=== PATIENT | female | born 1960 | race Caucasian/White ===

== ENCOUNTER 2018-02-12 21:41 | Emergency (ER) | payer MEDICAID ==
[~2018-02-12] VITALS: Ht 154.9 cm; Wt 103.8 kg
[2018-02-12 22:26] VITALS: BP 160/87
[2018-02-12] MEDS ORDERED: BODY (22:26)
[2018-02-12] MEDS ORDERED: [UNRECOGNIZED DRUG - OTHER] (22:26)
[2018-02-12] MEDS ORDERED: OXYcodone/APAP 5/325MG TABLET PO ONE (22:30)
[2018-02-12] MEDS ORDERED: KETOROLAC 60 MG/2 ML IM ONE (22:30)
[2018-02-12] MEDS ORDERED: OXYcodone/APAP 5/325MG TABLET ONE ×2 (22:34→22:45)
[2018-02-12] MEDS ORDERED: KETOROLAC 30 MG/1 ML ONE (22:34)
== END 2018-02-12 22:58 | disposition home or self-care (01) ==
LOC: ED 22:50
DX: G89.29 Other chronic pain (principal); M54.5 Low back pain
CPT/HCPCS: 96372; 99283; J1885

== ENCOUNTER 2019-09-15 18:51 | Emergency (ER) | payer MEDICAID ==
[~2019-09-15] VITALS: Ht 170.2 cm; Wt 105.0 kg
[~2019-09-15 18:51] MED LIST: BODY; [UNRECOGNIZED DRUG - OTHER]
[2019-09-15 18:59] VITALS: BP 153/70
[2019-09-15] MEDS ORDERED: KETOROLAC 30 MG/1 ML ONE (19:12)
[2019-09-15 19:19] LABS: BASOPHILS # (AUTO) 0.06 x10^3/uL (0-0.1); BASOPHILS % (AUTO) 1 % (0-1); EOSINOPHILS % (AUTO) 2 % (1-7); LYMPHOCYTES # (AUTO) 2.51 x10^3/uL (1-3.4); LYMPHOCYTES % (AUTO) 26 % (22-44); MD NO; MEAN CORPUSCULAR HEMOGLOBIN 34.3 pg (27.0-34.8); MEAN CORPUSCULAR HGB CONC 33.3 g/dL (32.4-35.8); MEAN PLATELET VOLUME 8.5 fL (7.4-10.4); MONOCYTES # (AUTO) 0.64 x10^3/uL (0.2-0.8); MONOCYTES % (AUTO) 7 % (2-9); NEUTROPHILS # (AUTO) 6.25 x10^3/uL (1.8-6.8); NEUTROPHILS % (AUTO) 65 % (42-75); PLATELET COUNT 191 x10^3/uL (130-400); RED BLOOD COUNT 4.38 x10^6/uL (3.82-5.3); RED CELL DISTRIBUTION WIDTH 14.6 % (9.6-15.2)
[2019-09-15] MEDS ORDERED: KETOROLAC 30 MG/1 ML IVPush ONE (19:30)
[2019-09-15 19:33] LABS: ANION GAP 9 mmol/L (5-15); CALCIUM 8.7 mg/dL (8.5-10.1); CHLORIDE 108 mmol/L (98-107); CREATININE 0.86 mg/dL (0.55-1.02)
[2019-09-15 19:34] LABS: ALANINE AMINOTRANSFERASE 26 U/L (12-78); ALBUMIN 3.7 g/dL (3.4-5.0)
[2019-09-15 19:38] LABS: ALKALINE PHOSPHATASE 83 U/L (45-117); BILIRUBIN,TOTAL 0.2 mg/dL (0.2-1.0); TOTAL PROTEIN 7.7 g/dL (6.4-8.2); TROPONIN I < 0.015 ng/mL (0.000-0.045)
[2019-09-15] MEDS ORDERED: POTASSIUM CHLORIDE 40 MEQ in SODIUM CHLORIDE 0.9% 500 ML IV ONE (20:00)
[2019-09-15] MEDS ORDERED: POTASSIUM CHLORIDE 20 MEQ PACKET PO ONE (20:00)
--- NOTE | 2019-09-15 20:10 | NUR ---
Request sent to pharmacy for potassium meds. Per MD patient to be here for four hours to complete Potassium infusion.
--- NOTE | 2019-09-15 20:24 | NUR ---
Potassium IV infusion ordered for patient; patient refusing. Risks explained to romariotent; patient states she understands. AMA form signed and given to MD. MD aware of patient refusal. No cardiac abnormalities observed on EKG or 5-lead per ERP. Patient still agreed to PO Potassium supplement and agrees to wait for discharge instructions which will include Potassium supplements.
== END 2019-09-15 20:44 | disposition home or self-care (01) ==
LOC: ED 20:35
DX: R07.89 Other chest pain (principal); R07.2 Precordial pain; M54.5 Low back pain; G89.29 Other chronic pain; F10.129 Alcohol abuse with intoxication, unspecified; E87.6 Hypokalemia; Y90.0 Blood alcohol level of less than 20 mg/100 ml
CPT/HCPCS: 36415; 71045; 80053; 80307; 84484; 85025; 85379; 93005; 96374; 99284; J1885